=== PATIENT | male | born 1970 | race Caucasian/White ===

== ENCOUNTER 2016-04-22 17:40 | Emergency (ER) | payer OTHER ==
[2016-04-22] MEDS ORDERED: MECLIZINE HCL 25 MG TABLET ONE (20:38)
== END 2016-04-22 20:47 | disposition home or self-care (01) ==
LOC: ED 17:40
DX: R42 Dizziness and giddiness (principal); I10 Essential (primary) hypertension; R11.0 Nausea
CPT/HCPCS: 99283 ×2; A9270

== ENCOUNTER 2016-05-19 17:44 | Emergency (ER) | payer OTHER ==
--- NOTE | 2016-05-20 07:32 | RAD ---
Exam: Three-view thoracic spine COMPARISON: 01/17/2015 INDICATION: Back pain for 3 weeks, no known injury. FINDINGS: AP, lateral and swimmer's views of the thoracic spine were obtained. There is anatomic sagittal alignment. Overall vertebral body height and disc spaces maintained. Small osteophytes are again noted at T7-8 and T8-9 as seen previously. Visualized hemithoraces within normal limits. IMPRESSION: Stable exam since 01/17/2015, without acute osseous abnormality in the thoracic spine or significant interval change.
== END 2016-05-19 20:04 | disposition home or self-care (01) ==
LOC: ED 17:44
DX: M54.6 Pain in thoracic spine (principal); I10 Essential (primary) hypertension